=== PATIENT | female | born 1970 | race African-American/Black ===

== ENCOUNTER 2017-03-25 09:24 | Emergency (ER) | payer BC ==
[~2017-03-25] VITALS: Ht 170.2 cm; Wt 123.0 kg
[~2017-03-25 09:24] MED LIST: HYDR25TA PO; IBUP-2030 PO
[2017-03-25 20:16] LABS: CLARITY URINE TURBID (CLEAR); COLOR URINE DARK YELLOW (YELLOW); GLUCOSE URINE NEGATIVE (NEGATIVE); KETONES URINE TRACE (NEGATIVE); LEUKOCYTE ESTERASE URINE NEGATIVE (NEGATIVE); NITRITE URINE NEGATIVE (NEGATIVE); OCCULT BLOOD URINE NEGATIVE (NEGATIVE); PH URINE 5.5 (4.5-8.0); PROTEIN URINE 1+ (NEGATIVE); SPECIFIC GRAVITY URINE 1.032 (1.005-1.030)
[2017-03-25 21:10] LABS: BASOPHILS % 0.8 % (0.0-2.0); EOSINOPHILS % 7.9 % (0.0-5.0); HEMATOCRIT. 35.4 % (36.0-48.0); HEMOGLOBIN. 11.4 g/dL (12.0-16.0); LYMPHOCYTES % 28.5 % (20.0-50.0); MEAN CORPUSCULAR HEMOGLOBIN 25.7 pg (28.0-32.0); MEAN CORPUSCULAR VOLUME 79.7 fL (81.0-99.0); MEAN PLATELET VOLUME 8.4 fl (7.4-10.4); MONOCYTES % 8.1 % (2.0-8.0); NEUTROPHILS % 54.7 % (40.0-76.0); PLATELET 247 x1000/uL (130-400); RED BLOOD CELL COUNT 4.44 mill/uL (4.2-5.4); RED CELL DISTRIBUTION WIDTH 18.2 % (11.6-14.6)
[2017-03-25 21:14] LABS: CHLORIDE 104 mEq/L (98-107); INR 1.1; PROTHROMBIN TIME 11.2 sec (9.4-11.6)
[2017-03-25 21:24] LABS: CARBON DIOXIDE 28 mEq/L (21-32); TROPONIN I < 0.02 ng/mL (0.00-0.04)
[2017-03-25] MEDS ORDERED: KETOROLAC 60MG/2ML VIAL IM ONE (21:45)
[2017-03-25] MEDS ORDERED: POTASSIUM CHLORIDE 20MEQ/PACKET PO ONE (23:45)
[2017-03-26 01:50] VITALS: BP 130/77
== END 2017-03-26 01:50 | disposition home or self-care (01) ==
LOC: ER 09:36
DX: R07.1 Chest pain on breathing (principal); R10.30 Lower abdominal pain, unspecified; Z98.51 Tubal ligation status
CPT/HCPCS: 36415; 71010; 74176; 80053; 81001; 81025; 83880; 84484; 85025; 85610; 93005; 96372; 99285; J1885

== ENCOUNTER 2018-09-08 13:34 | Inpatient (IN) | payer BC ==
[~2018-09-08] VITALS: Ht 170.2 cm; Wt 111.1 kg
[2018-09-08] MEDS ORDERED: SODIUM CHLORIDE 0.9% 1,000 ML IV ONE (14:33)
[2018-09-08] MEDS ORDERED: ASPIRIN 81MG TABLET PO ONE (14:45)
[2018-09-08 15:09] LABS: CHLORIDE 107 mEq/L (98-107)
[2018-09-08 15:12] LABS: ETHANOL BLOOD < 10 mg/dL
[2018-09-08 15:13] LABS: D-DIMER 0.64 mg/L FEU (<0.50); PARTIAL THROMBOPLASTIN TIME 26.8 sec (23.4-31.0); PROTHROMBIN TIME 10.2 sec (9.1-11.1)
[2018-09-08] MEDS ORDERED: FUROSEMIDE 40MG/4ML VIAL IVP ONE (15:30)
[2018-09-08 15:43] LABS: T4 FREE 1.02 ng/dL (0.76-1.46)
[2018-09-08 15:51] LABS: HCG SCREEN NEGATIVE
[2018-09-08 15:52] LABS: HEMATOCRIT. 30.5 % (36.0-48.0); HEMOGLOBIN. 9.5 g/dL (12.0-16.0); MEAN CORPUSCULAR HEMOGLOBIN 21.2 pg (28.0-32.0); MEAN CORPUSCULAR VOLUME 68.3 fL (81.0-99.0); PLATELET 278 x1000/uL (130-400); RED BLOOD CELL COUNT 4.47 mill/uL (4.2-5.4); RED CELL DISTRIBUTION WIDTH 18.9 % (11.6-14.6)
[2018-09-08 16:25] LABS: PLATELET ESTIMATE NORMAL
[2018-09-08] MEDS ORDERED: IOHEXOL-350 100 ML BOTTLE ONE (18:03)
[2018-09-08 18:06] LABS: CLARITY URINE CLEAR (CLEAR); COLOR URINE YELLOW (YELLOW); KETONES URINE NEGATIVE (NEGATIVE); LEUKOCYTE ESTERASE URINE NEGATIVE (NEGATIVE); NITRITE URINE NEGATIVE (NEGATIVE); OCCULT BLOOD URINE NEGATIVE (NEGATIVE); PROTEIN URINE NEGATIVE (NEGATIVE); SPECIFIC GRAVITY URINE 1.013 (1.005-1.030); UROBILINOGEN URINE 0.2 E.U./dL (0.2-1.0)
[2018-09-08 18:18] LABS: *AMPHETAMINES SCREEN URINE NEGATIVE (NEGATIVE); *BARBITURATES SCREEN URINE NEGATIVE (NEGATIVE); *BENZODIAZEPINES SCREEN URINE NEGATIVE (NEGATIVE)
[2018-09-08 18:19] LABS: *COCAINE SCREEN URINE NEGATIVE (NEGATIVE); CANNABINOID URINE SCREEN NEGATIVE (NEGATIVE); METHADONE URINE SCREEN NEGATIVE (NEGATIVE); OPIATES URINE SCREEN NEGATIVE (NEGATIVE); PHENCYCLIDINE URINE SCREEN NEGATIVE (NEGATIVE)
[2018-09-09] VITALS (7 sets, daily range): BP systolic 108–139; BP diastolic 51–68
[2018-09-09] MEDS ORDERED: ACETAMINOPHEN 325MG TABLET PO PRN (01:00)
[2018-09-09] MEDS ORDERED: CLONIDINE 0.1MG TABLET PO PRN (01:00)
[2018-09-09] MEDS ORDERED: ONDANSETRON HCL 4MG/2ML INJ IV PRN (01:00)
[2018-09-09] MEDS ORDERED: ZOLPIDEM TARTRATE 5MG TABLET PO PRN (01:00)
[2018-09-09 06:29] LABS: HEMATOCRIT. 30.9 % (36.0-48.0); HEMOGLOBIN. 9.5 g/dL (12.0-16.0); MEAN CORPUSCULAR HEMOGLOBIN 21.3 pg (28.0-32.0); MEAN CORPUSCULAR VOLUME 69.1 fL (81.0-99.0); MEAN PLATELET VOLUME 8.3 fl (7.4-10.4); PLATELET 282 x1000/uL (130-400); RED BLOOD CELL COUNT 4.48 mill/uL (4.2-5.4); RED CELL DISTRIBUTION WIDTH 18.7 % (11.6-14.6)
[2018-09-09 06:36] LABS: CHLORIDE 105 mEq/L (98-107)
[2018-09-09] MEDS: FUROSEMIDE 20MG/2ML VIAL IVP SCH (08:30)
[2018-09-09] MEDS: ENOXAPARIN 30MG/0.3ML SYR SUBCUT SCH ×2 (08:30→21:00)
[2018-09-09 12:24] LABS: PHOSPHORUS 3.8 mg/dL (2.5-4.9)
[2018-09-09 13:25] LABS: PLATELET ESTIMATE NORMAL
[2018-09-10 04:00] VITALS: BP 130/67
[2018-09-10 06:29] LABS: HEMATOCRIT. 29.3 % (36.0-48.0); HEMOGLOBIN. 9.2 g/dL (12.0-16.0); MEAN CORPUSCULAR HEMOGLOBIN 21.3 pg (28.0-32.0); MEAN CORPUSCULAR VOLUME 67.9 fL (81.0-99.0); MEAN PLATELET VOLUME 8.5 fl (7.4-10.4); PLATELET 287 x1000/uL (130-400); RED BLOOD CELL COUNT 4.32 mill/uL (4.2-5.4); RED CELL DISTRIBUTION WIDTH 18.5 % (11.6-14.6)
[2018-09-10 07:12] LABS: CHLORIDE 105 mEq/L (98-107)
[2018-09-10 07:30] VITALS: BP 123/64
[2018-09-10] MEDS: FUROSEMIDE 20MG/2ML VIAL IVP SCH (08:16)
[2018-09-10] MEDS: ENOXAPARIN 30MG/0.3ML SYR SUBCUT SCH ×2 (08:28→21:00)
[2018-09-10 09:50] LABS: PLATELET ESTIMATE NORMAL
[2018-09-10 11:30] VITALS: BP 100/51
[2018-09-10 16:00] VITALS: BP 126/70
[2018-09-10 20:00] VITALS: BP 151/71
[2018-09-11] VITALS: BP 127/70
[2018-09-11 04:00] VITALS: BP 115/64
[2018-09-11 06:52] LABS: HEMATOCRIT. 29.2 % (36.0-48.0); HEMOGLOBIN. 9.1 g/dL (12.0-16.0); MEAN CORPUSCULAR HEMOGLOBIN 21.2 pg (28.0-32.0); MEAN CORPUSCULAR VOLUME 68.1 fL (81.0-99.0); MEAN PLATELET VOLUME 8.8 fl (7.4-10.4); PLATELET 289 x1000/uL (130-400); RED BLOOD CELL COUNT 4.29 mill/uL (4.2-5.4); RED CELL DISTRIBUTION WIDTH 18.7 % (11.6-14.6)
[2018-09-11 07:01] LABS: CHLORIDE 105 mEq/L (98-107)
[2018-09-11 08:38] VITALS: BP 110/49
[2018-09-11] MEDS: ENOXAPARIN 30MG/0.3ML SYR SUBCUT SCH ×2 (08:59→21:00)
[2018-09-11 10:38] LABS: PLATELET ESTIMATE NORMAL
[2018-09-11 12:00] VITALS: BP 112/51
[2018-09-11 16:01] VITALS: BP 101/47
[2018-09-11 20:00] VITALS: BP 119/60
[2018-09-12] VITALS: BP 104/40
[2018-09-12 00:28] VITALS: BP 103/44
[2018-09-12 04:00] VITALS: BP 102/48
[2018-09-12 07:11] LABS: CHLORIDE 105 mEq/L (98-107)
[2018-09-12 07:14] LABS: HEMATOCRIT. 32.3 % (36.0-48.0); HEMOGLOBIN. 10.1 g/dL (12.0-16.0); MEAN CORPUSCULAR HEMOGLOBIN 21.6 pg (28.0-32.0); MEAN CORPUSCULAR VOLUME 68.8 fL (81.0-99.0); MEAN PLATELET VOLUME 8.5 fl (7.4-10.4); PLATELET 307 x1000/uL (130-400); RED BLOOD CELL COUNT 4.69 mill/uL (4.2-5.4); RED CELL DISTRIBUTION WIDTH 18.6 % (11.6-14.6)
[2018-09-12 08:00] VITALS: BP 106/50
[2018-09-12] MEDS: ENOXAPARIN 30MG/0.3ML SYR SUBCUT SCH (08:40)
[2018-09-12 12:33] VITALS: BP 108/63
[2018-09-12 14:02] LABS: PLATELET ESTIMATE NORMAL
== END 2018-09-12 14:30 | disposition home or self-care (01) | DRG 310 ==
LOC: ER 13:34 → 8WST 16:12 → EDBEDREQ 16:15 → EDBEDREQTM 16:15 → ENRESERV 23:24
PROVIDERS: ADMIT Family Medicine Adult Medicine; ATTEND Family Medicine Adult Medicine
DX: I48.91 Unspecified atrial fibrillation (principal); I48.92 Unspecified atrial flutter; I49.9 Cardiac arrhythmia, unspecified; E05.90 Thyrotoxicosis, unspecified without thyrotoxic crisis or storm; I10 Essential (primary) hypertension; E03.9 Hypothyroidism, unspecified; R79.1 Abnormal coagulation profile; Z79.899 Other long term (current) drug therapy; Z91.14 Patient's other noncompliance with medication regimen; Z98.51 Tubal ligation status; G90.8 Other disorders of autonomic nervous system
CPT/HCPCS: 36415; 71045; 71275; 80048; 80305; 80320; 83605; 83735; 83880; 84100; 84439; 84443; 84481; 84484; 84703; 85379; 93005; 93306; 96374; 96376; 99285; J1650; J1940; J7030; Q9967; G0480

== ENCOUNTER 2019-07-31 17:11 | Emergency (ER) | payer BC ==
[~2019-07-31] VITALS: Ht 170.2 cm; Wt 109.0 kg
[~2019-07-31 17:11] MED LIST changes: -HYDR25TA PO
[2019-07-31 17:28] VITALS: BP 115/68
[2019-07-31] MEDS ORDERED: ACETAMINOPHEN 325MG TABLET ONE (17:45)
== END 2019-07-31 21:18 | disposition left against medical advice (07) ==
LOC: ER 17:11
DX: R07.89 Other chest pain (principal); Z53.21 Procedure and treatment not carried out due to patient leaving prior to being seen by health care provider
CPT/HCPCS: 93005

== ENCOUNTER 2020-05-05 09:47 | Emergency (ER) | payer BC ==
[~2020-05-05] VITALS: Ht 170.2 cm; Wt 122.0 kg
[2020-05-05] MEDS ORDERED: ASPIRIN 81MG TABLET PO ONE (10:00)
[2020-05-05 10:31] LABS: BASOPHILS % 1.9 % (0.0-2.0); EOSINOPHILS % 6.1 % (0.0-5.0); HEMATOCRIT. 36.6 % (36.0-48.0); HEMOGLOBIN. 11.9 g/dL (12.0-16.0); LYMPHOCYTES % 29.4 % (20.0-50.0); MEAN CORPUSCULAR HEMOGLOBIN 26.7 pg (28.0-32.0); MEAN CORPUSCULAR VOLUME 82.2 fL (81.0-99.0); MEAN PLATELET VOLUME 8.6 fl (7.4-10.4); MONOCYTES % 6.3 % (2.0-8.0); NEUTROPHILS % 56.3 % (40.0-76.0); PLATELET 247 x1000/uL (130-400); RED BLOOD CELL COUNT 4.45 mill/uL (4.2-5.4); RED CELL DISTRIBUTION WIDTH 14.3 % (11.6-14.6)
[2020-05-05 10:36] LABS: CHLORIDE 106 mEq/L (98-107)
[2020-05-05 11:22] VITALS: BP 147/85
== END 2020-05-05 11:24 | disposition home or self-care (01) ==
LOC: ER 10:02
DX: R07.89 Other chest pain (principal); I10 Essential (primary) hypertension; E78.00 Pure hypercholesterolemia, unspecified; E05.90 Thyrotoxicosis, unspecified without thyrotoxic crisis or storm; Z95.0 Presence of cardiac pacemaker
CPT/HCPCS: 36415; 71045; 80053; 84484; 85025; 93005; 99285; Z7610

== ENCOUNTER → 2020-06-16 | Emergency (ER) | payer BC ==
[~2020-06-16] VITALS: Ht 170.2 cm; Wt 125.0 kg
[2020-06-16 09:47] VITALS: BP 155/59
== END ==
LOC: ER 09:41
DX: I10 Essential (primary) hypertension (principal); E78.00 Pure hypercholesterolemia, unspecified; Z95.0 Presence of cardiac pacemaker; Z98.51 Tubal ligation status; E05.90 Thyrotoxicosis, unspecified without thyrotoxic crisis or storm; I49.9 Cardiac arrhythmia, unspecified
CPT/HCPCS: 99283

== ENCOUNTER 2021-05-24 13:08 | Emergency (ER) | payer BC ==
[~2021-05-24] VITALS: Ht 170.2 cm; Wt 124.0 kg
[2021-05-24 13:27] VITALS: BP 134/83
[2021-05-24 14:45] LABS: BASOPHILS % 0.6 % (0.0-2.0); EOSINOPHILS % 5.4 % (0.0-5.0); HEMOGLOBIN. 11.8 g/dL (12.0-16.0); LYMPHOCYTES % 32.5 % (20.0-50.0); MEAN CORPUSCULAR VOLUME 78.6 fL (81.0-99.0); NEUTROPHILS % 47.5 % (40.0-76.0); PLATELET 257 x1000/uL (130-400); RED BLOOD CELL COUNT 4.71 mill/uL (4.2-5.4); RED CELL DISTRIBUTION WIDTH 15.8 % (11.6-14.6)
[2021-05-24 14:48] LABS: CHLORIDE 101 mEq/L (98-107)
[2021-05-24] MEDS ORDERED: SODIUM CHLORIDE 0.9% 1,000 ML IV ONE (16:15)
[2021-05-24] MEDS ORDERED: ACETAMINOPHEN 325MG TABLET PO ONE (16:30)
[2021-05-24 17:56] LABS: CLARITY URINE CLOUDY (CLEAR); COLOR URINE YELLOW (YELLOW); KETONES URINE TRACE (NEGATIVE); LEUKOCYTE ESTERASE URINE NEGATIVE (NEGATIVE); NITRITE URINE NEGATIVE (NEGATIVE); OCCULT BLOOD URINE NEGATIVE (NEGATIVE); PH URINE 5.5 (4.5-8.0); PROTEIN URINE 1+ (NEGATIVE); SPECIFIC GRAVITY URINE 1.033 (1.005-1.030)
== END 2021-05-24 19:27 | disposition home or self-care (01) ==
LOC: ER 13:08
DX: E86.0 Dehydration (principal); I11.9 Hypertensive heart disease without heart failure; R51.9 Headache, unspecified; Z95.0 Presence of cardiac pacemaker
CPT/HCPCS: 36415; 71045; 80053; 81003; 83880; 84484; 85025; 93005; 96360; 96361; 99285; J7030

== ENCOUNTER 2021-06-15 17:06 | Emergency (ER) | payer BC ==
[~2021-06-15] VITALS: Ht 170.2 cm; Wt 124.0 kg
[2021-06-15 23:33] LABS: BASOPHILS % 1.2 % (0.0-2.0); EOSINOPHILS % 8.5 % (0.0-5.0); HEMOGLOBIN. 11.7 g/dL (12.0-16.0); LYMPHOCYTES % 40.4 % (20.0-50.0); MEAN CORPUSCULAR HEMOGLOBIN 25.8 pg (28.0-32.0); MEAN CORPUSCULAR VOLUME 79.6 fL (81.0-99.0); MEAN PLATELET VOLUME 8.4 fl (7.4-10.4); MONOCYTES % 10.7 % (2.0-8.0); NEUTROPHILS % 39.2 % (40.0-76.0); PLATELET 262 x1000/uL (130-400); RED BLOOD CELL COUNT 4.53 mill/uL (4.2-5.4); RED CELL DISTRIBUTION WIDTH 15.6 % (11.6-14.6)
[2021-06-16 00:01] LABS: CHLORIDE 105 mEq/L (98-107)
[2021-06-16] MEDS ORDERED: HYDROCODONE/ACETAMINOPHEN 5/325MG TABLET PO ONE (01:00)
[2021-06-16 01:08] VITALS: BP 156/81
[2021-06-16] MEDS ORDERED: AZIT250T12 MT (02:04)
[2021-06-16] MEDS ORDERED: IBUP-2030 PO (02:06)
== END 2021-06-16 02:22 | disposition home or self-care (01) ==
LOC: ER 17:06
DX: M79.18 Myalgia, other site (principal); R05.9 Cough, unspecified; R07.89 Other chest pain; E78.00 Pure hypercholesterolemia, unspecified; I10 Essential (primary) hypertension; Z95.0 Presence of cardiac pacemaker; Z20.822 Contact with and (suspected) exposure to COVID-19
CPT/HCPCS: 36415; 71045; 80053; 84484; 85025; 87426; 93005; 99285

== ENCOUNTER 2025-03-01 12:19 | Emergency (ER) | payer BC ==
[~2025-03-01] VITALS: Ht 170.2 cm; Wt 129.0 kg
[~2025-03-01 12:19] MED LIST changes: +AMLO5TAB88 PO; -IBUP-2030 PO; +LIP40 PO; +NEBI5TAB9 PO
[2025-03-01 12:24] VITALS: O2SAT 98
[2025-03-01 13:07] LABS: BASOPHILS % 1.2 % (0.0-2.0); EOSINOPHILS % 4.9 % (0.0-5.0); HEMATOCRIT. 40.1 % (36.0-48.0); HEMOGLOBIN. 13.0 g/dL (12.0-16.0); LYMPHOCYTES % 28.8 % (20.0-50.0); MEAN PLATELET VOLUME 8.4 fl (7.4-10.4); MONOCYTES % 7.2 % (2.0-8.0); NEUTROPHILS % 57.9 % (40.0-76.0); PLATELET 254 x1000/uL (130-400); RED BLOOD CELL COUNT 4.93 mill/uL (4.2-5.4); RED CELL DISTRIBUTION WIDTH 15.8 % (11.6-14.6)
[2025-03-01 13:21] LABS: CREATININE 1.0 mg/dL (0.6-1.0); TROPONIN I HIGH SENSITIVITY < 4 ng/L (3.0-34); UREA NITROGEN BLOOD 15 mg/dL (9-23)
[2025-03-01 13:23] LABS: ASPARTATE AMINOTRANSFERASE 15 IU/L (<34); BILIRUBIN DIRECT 0.2 mg/dL (<=3.0); BILIRUBIN TOTAL 0.6 mg/dL (0.1-1.0); PROTEIN TOTAL 7.8 g/dL (6.0-8.3)
[2025-03-01] MEDS: ACETAMINOPHEN 325MG TABLET PO ONE (13:40)
[2025-03-01 16:22] LABS: TROPONIN I HIGH SENSITIVITY < 4 ng/L (3.0-34)
[2025-03-01 16:42] VITALS: BP 137/86; PULSE 76; RESP 16; TEMP 36.7; O2SAT 99
== END 2025-03-01 17:14 | disposition home or self-care (01) ==
LOC: ER 12:19 → CMPBEDREQ 19:25
DX: F43.9 Reaction to severe stress, unspecified (principal); E78.00 Pure hypercholesterolemia, unspecified; I11.0 Hypertensive heart disease with heart failure; I50.9 Heart failure, unspecified; Z79.899 Other long term (current) drug therapy; Z95.0 Presence of cardiac pacemaker
CPT/HCPCS: 80076; 80048; 82962; 83735; 85025; 84484; 36415; 71045; 93005; 99285; Z7610; A4606

== ENCOUNTER 2025-05-04 08:44 | Emergency (ER) | payer BC ==
[~2025-05-04] VITALS: Ht 175.3 cm; Wt 120.0 kg
[2025-05-04 08:50] VITALS: O2SAT 96
[2025-05-04] MEDS: ACETAMINOPHEN 500MG TABLET PO ONE (09:56)
[2025-05-04] MEDS: METOCLOPRAMIDE HCL 10MG TABLET PO ONE (09:56)
[2025-05-04] MEDS: MECLIZINE 25MG TABLET PO ONE (09:57)
[2025-05-04 10:02] LABS: BASOPHILS % 0.9 % (0.0-2.0); EOSINOPHILS % 5.5 % (0.0-5.0); HEMATOCRIT. 41.9 % (36.0-48.0); HEMOGLOBIN. 13.3 g/dL (12.0-16.0); LYMPHOCYTES % 32.0 % (20.0-50.0); MEAN PLATELET VOLUME 8.4 fl (7.4-10.4); MONOCYTES % 5.8 % (2.0-8.0); NEUTROPHILS % 55.8 % (40.0-76.0); PLATELET 253 x1000/uL (130-400); RED BLOOD CELL COUNT 5.10 mill/uL (4.2-5.4); RED CELL DISTRIBUTION WIDTH 15.0 % (11.6-14.6)
[2025-05-04 10:18] LABS: TROPONIN I HIGH SENSITIVITY 4 ng/L (3.0-34)
[2025-05-04 10:20] LABS: HCG SCREEN NEGATIVE
[2025-05-04 10:24] LABS: CREATININE 0.9 mg/dL (0.6-1.0); UREA NITROGEN BLOOD 16 mg/dL (9-23)
[2025-05-04 10:55] LABS: CLARITY URINE CLEAR (CLEAR); COLOR URINE YELLOW (YELLOW); GLUCOSE URINE NEGATIVE (NEGATIVE); KETONES URINE TRACE (NEGATIVE); LEUKOCYTE ESTERASE URINE NEGATIVE (NEGATIVE); NITRITE URINE NEGATIVE (NEGATIVE); OCCULT BLOOD URINE 1+ (NEGATIVE); PH URINE 6.0 (4.5-8.0); PROTEIN URINE 1+ (NEGATIVE); SPECIFIC GRAVITY URINE 1.025 (1.005-1.030); UROBILINOGEN URINE 1.0 E.U./dL (0.2-1.0)
[2025-05-04 11:27] LABS: SQUAMOUS EPITHELIAL CELL URINE 1+ /lpf (RARE/1+)
[2025-05-04 11:28] LABS: RBC URINE 0-2 /hpf (0-2); WBC URINE NONE SEEN /hpf (0-2)
[2025-05-04 11:29] LABS: BACTERIA URINE NONE SEEN
[2025-05-04 12:07] VITALS: BP 133/89; PULSE 69; RESP 18; TEMP 37.1; O2SAT 100
== END 2025-05-04 12:12 | disposition home or self-care (01) ==
LOC: ER 08:44
DX: R42 Dizziness and giddiness (principal); I11.0 Hypertensive heart disease with heart failure; I50.9 Heart failure, unspecified; E78.00 Pure hypercholesterolemia, unspecified; I49.9 Cardiac arrhythmia, unspecified; Z98.51 Tubal ligation status; Z95.0 Presence of cardiac pacemaker; Z79.899 Other long term (current) drug therapy
CPT/HCPCS: 80048; 81003; 81025; 80320; 84703; 85025; 84484; 36415; 70450; 93005; 99284; J8597 ×2; G0480